=== PATIENT | female | born 1945 | race Caucasian/White ===

== ENCOUNTER 2019-11-19 11:58 | Emergency (ER) | payer MEDICARE, OTHER ==
[2019-11-19] MEDS ORDERED: Sodium Chloride 0.9% 10 ML Syringe FLUSH PRN (12:31)
--- NOTE | 2019-11-19 12:32 | EDM.PDOC ---
ED HPI GENERAL MEDICAL PROBLEM - General Chief Complaint: Upper Extremity Injury/Pain Stated Complaint: BROKEN RIGHT WRIST Time Seen by Provider: 11/19/19 12:09 Source of Information: Reports: Patient, RN Notes Reviewed History Limitations: Reports: No Limitations - History of Present Illness INITIAL COMMENTS - FREE TEXT/NARRATIVE: Patient is a 74-year-old female who presents to the ED for the evaluation of a right wrist fracture. The patient was evaluated by Dr. Harman at the [facility] for her wrist injury. She was found to have a right wrist fracture and placed in a sugar tong splint, and sent here for reduction of the joint. Patient states that she was walking her dog earlier this morning, not paying attention to the ground when she tripped over an uneven portion and ended up breaking her fall with her right wrist. Patient states that there is not a lot of pain involved with this, and that she still has feeling distal to the injury. Patient states that she has a history of high blood pressure, thyroid issues, GERD, but denies any pulmonary history. Patient is not complaining of any pain that radiates up the arm. The patient denies any other sick-like symptoms. Patient states that she is right hand dominant. Right Wrist Pain Score (Numeric/FACES): 2 - Related Data Allergies Allergy/AdvReac Type Severity Reaction Status Date / Time hydrochlorothiazide Allergy Cannot Verified 11/19/19 12:12 Remember yesy Allergy Swollen Verified 11/19/19 12:12 Tongue pistachio nut Allergy Airway Verified 11/19/19 12:12 Tightness Past Medical History HEENT History: Reports: Impaired Vision Cardiovascular History: Reports: High Cholesterol, Hypertension Gastrointestinal History: Reports: Diverticulosis, GERD - Past Surgical History GI Surgical History: Reports: Jackson Fundoplication, Other (See Below) Other GI Surgeries/Procedures: colon resection Musculoskeletal Surgical History: Reports: Hip Replacement, Knee Replacement Social & Family History - Tobacco Use Smoking Status *Q: Never Smoker Review of Systems - Review of Systems Review Of Systems: Comprehensive ROS is negative, except as noted in HPI. ED EXAM, GENERAL - Physical Exam Exam: See Below Exam Limited By: No Limitations General Appearance: Alert, WD/WN, No Apparent Distress Eye Exam: Bilateral Eye: EOMI, Normal Inspection, PERRL Respiratory/Chest: No Respiratory Distress, Lungs Clear, Normal Breath Sounds, No Accessory Muscle Use, Chest Non-Tender Cardiovascular: Normal Peripheral Pulses, Regular Rate, Rhythm, No Murmur Peripheral Pulses: 3+: Radial (L), Radial (R) GI/Abdominal: Normal Bowel Sounds, Soft, Non-Tender, No Distention, No Mass Extremities: Normal Capillary Refill, Other (R wrist/forearm w/ sugartong splint in place. good finger movement, no n/t) Neurological: Alert, Oriented, Normal Cognition, No Motor/Sensory Deficits Psychiatric: Normal Affect, Normal Mood Skin Exam: Warm, Dry, Intact, Normal Color, No Rash ED TRAUMA EXTREMITY PROCEDURES - Joint Reduction Right Wrist Sedation: Conscious Sedation (50 mcg of fentanyl and 2 mg of Versed were used these were administered by nursing staff under the direction of Dr. Mendez and myself), Hematoma/Fracture Block Local Anesthesia - Lidocaine (Xylocaine): 1% Plain Local Anesthetic Volume: 5cc Pre-Procedure NV Status: Normal Post-Procedure NV Status: Normal Technique: Traction/Counter Traction Number of Attempts: 1 Post-Reduction Imaging: Completely Reduced Joint Reduction Complications: No - Splinting Right Upper Extremity Splint Site: R wrist Pre-Procedure NV Status: Normal Post-Procedure NV Status: Normal Splint Material: Fiberglass Splint Design: Sugar Tong, Sling Applied & Form Fitted By: Provider, Nurse Provider Post-Splint Application NV Check: NV Status Normal, Good Position Complications: No Course - Vital Signs Last Recorded V/S: Last Vital Signs Temp 97.5 F 11/19/19 12:09 Pulse 81 11/19/19 12:09 Resp 16 11/19/19 12:09 BP 170/99 H 11/19/19 12:09 Pulse Ox 98 11/19/19 12:09 - Orders/Labs/Meds Orders: Active Orders 24 hr Category Date Time Status Communication Order [RC] STAT Care 11/19/19 12:44 Ordered Peripheral IV Care [RC] . DIRECTED Care 11/19/19 12:31 Ordered Wrist 2V Rt [CR] Stat Exams 11/19/19 13:28 Ordered Sodium Chloride 0.9% [Saline Flush] Med 11/19/19 12:31 Active 10 ml FLUSH ASDIRECTED PRN Peripheral IV Insertion Adult [OM.PC] Stat Oth 11/19/19 12:31 Ordered Medication Orders Sodium Chloride (Saline Flush) 10 ml FLUSH ASDIRECTED PRN PRN Reason: Keep Vein Open Meds: Medications Generic Name Dose Route Start Last Admin Trade Name Freq PRN Reason Stop Dose Admin Sodium Chloride 10 ml 11/19/19 12:31 Saline Flush FLUSH ASDIRECTED PRN Keep Vein Open Discontinued Medications Generic Name Dose Route Start Last Admin Trade Name Freq PRN Reason Stop Dose Admin Fentanyl 100 mcg 11/19/19 12:43 Sublimaze IVPUSH 11/19/19 12:44 ONETIME ONE Lidocaine HCl 10 ml 11/19/19 12:42 Xylocaine 1% INJECT 11/19/19 12:43 ONETIME ONE Midazolam HCl 5 mg 11/19/19 12:43 11/19/19 13:08 Versed 1 Mg/Ml IVPUSH 11/19/19 12:44 Not Given ONETIME ONE Midazolam HCl 5 mg 11/19/19 13:06 Versed 1 Mg/Ml IVPUSH 11/19/19 13:07 ONETIME ONE - Re-Assessments/Exams Free Text/Narrative Re-Assessment/Exam: 11/19/19 12:38 Patient presents to the ED for reduction of her right wrist injury. The x-ray films were sent from Dr. Alejandro's clinic. It does show a dorsally angulated distal radius fracture. Minimal displacement. Will place an IV, and give the patient some IV pain meds and light sedation meds, and we will reduce in the ER. Dr. Mendez will be present and help with the reduction. 11/19/19 13:42 Patient was moved to trauma 2, informed consent was signed, the patient was given 2 mg Versed, and 50 mcg fentanyl and this did achieve pretty good pain control. Dr. Mendez performed a hematoma block at the site of the fracture, and we were able to successfully reduce the distal radius into good alignment. Postreduction films did also show good alignment. Patient will be directed to follow-up with Dr. Alejandro within the next week or so for a cast placement. Patient states that she does have some hydrocodone left over from a prior surgery, and states she can use this if she anticipates the need for stronger pain medications. I did caution her on the use of these, and she states that she does not like taking narcotic pain medications if possible. Departure - Departure Time of Disposition: 13:43 Disposition: Home, Self-Care 01 Condition: Good Clinical Impression: Distal radius fracture, right Qualifiers: Encounter type: initial encounter Fracture type: closed Fracture morphology: other fracture Qualified Code(s): S52.591A - Other fractures of lower end of right radius, initial encounter for closed fracture - Discharge Information *PRESCRIPTION DRUG MONITORING PROGRAM REVIEWED*: No *COPY OF PRESCRIPTION DRUG MONITORING REPORT IN PATIENT MAYRA: No Instructions: Cast or Splint Care, Adult, [id number], Closed Reduction for Wrist or Forearm, Care After Referrals: Aleah Jj PA [Primary Care Provider] - Forms: ED Department Discharge Additional Instructions: You have been evaluated in the ED for your right wrist fracture. You were given some IV medications, to help relax you, and your wrist was reduced successfully in the ER. Postreduction films did demonstrate good alignment of your radius in your right wrist. Please use ice as tolerated to the affected area. You may take Tylenol 500 mg or ibuprofen 600mg q6 hrs for pain relief. Please do so until you have a tolerable level of pain with activity. Do not exceed 4000mg Tylenol, Do not exceed 3200mg ibuprofen in a 24 hour time period. You indicated that you have a prescription for a strong pain medication, hydrocodone/acetaminophen 5/325, please take 1 tab every 6 hours as needed for pain not relieved by Tylenol or ibuprofen alone. Please note this does contain Tylenol in it, so do not take more than 4000 mg in a 24-hour time span. These medications can be addictive, so please take as few as possible to achieve adequate pain control. These meds can also be quite constipating, recommend that you increase your oral fluid intake and take a stool softener like MiraLAX while taking these medications. Please call Ortho for follow-up and further evaluation Dr. Alejandro is our orthopedic surgeon, his office number is [phone]. Please call and set up an appointment as soon as possible for further management. Please return to ED if your symptoms should change or worsen. Sepsis Event Note - Evaluation Sepsis Screening Result: No Definite Risk - Focused Exam Vital Signs: Vital Signs Temp Pulse Resp BP Pulse Ox 11/19/19 12:09 97.5 F 81 16 170/99 H 98 Date Exam was Performed: 11/19/19 Time Exam was Performed: 13:40 - My Orders Last 24 Hours: My Active Orders 11/19/19 12:31 Peripheral IV Care [RC] . DIRECTED Sodium Chloride 0.9% [Saline Flush] 10 ml FLUSH ASDIRECTED PRN Peripheral IV Insertion Adult [OM.PC] Stat 11/19/19 12:44 Communication Order [RC] STAT 11/19/19 13:28 Wrist 2V Rt [CR] Stat - Assessment/Plan Last 24 Hours: My Active Orders 11/19/19 12:31 Peripheral IV Care [RC] . DIRECTED Sodium Chloride 0.9% [Saline Flush] 10 ml FLUSH ASDIRECTED PRN Peripheral IV Insertion Adult [OM.PC] Stat 11/19/19 12:44 Communication Order [RC] STAT 11/19/19 13:28 Wrist 2V Rt [CR] Stat
[2019-11-19] MEDS ORDERED: Lidocaine 1% 10 ML MDV INJECT ONE (12:42)
[2019-11-19] MEDS ORDERED: Midazolam 1 MG/ML 5 ML SDV IVPUSH ONE (12:43)
[2019-11-19] MEDS ORDERED: fentaNYL 100 MCG/2 ML SDV IVPUSH ONE (12:43)
[2019-11-19] MEDS ORDERED: Midazolam 1 MG/ML 2 ML SDV IVPUSH ONE (13:06)
--- NOTE | 2019-11-19 14:17 | CR ---
Right wrist: 2 views of the right wrist were obtained. Comparison: Previous right wrist study performed earlier on the same day (9:41 AM) Comminuted distal radial fracture is seen with articular extension. Alignment appears close to anatomic with alignment being improved from previous study. Mild chondrocalcinosis is noted within the triangular fibrocartilage. 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 Soft tissue swelling is noted. Impression: 1. Improved alignment of previous fracture. 2. Degenerative change and soft tissue swelling. Diagnostic code #3 This report was dictated in MDT
== END 2019-11-19 14:22 | disposition home or self-care (01) ==
LOC: JD.ED 11:58
DX: S52.591A Other fractures of lower end of right radius, initial encounter for closed fracture (principal); I10 Essential (primary) hypertension; Z88.8 Allergy status to other drugs, medicaments and biological substances; Z91.018 Allergy to other foods; W01.0XXA Fall on same level from slipping, tripping and stumbling without subsequent striking against object, initial encounter
CPT/HCPCS: 25605; 73100; 99152; 99153; 99283; J2001; J2250; J3010

== ENCOUNTER 2025-05-14 06:45 | Day surgery (SDC) | payer MEDICARE, OTHER ==
[~2025-05-14 06:45] MED LIST: Sodium Chloride 0.9% 10 ML Syringe FLUSH PRN; Sodium Chloride 0.9% 10 ML Syringe FLUSH SCH
[2025-05-14] MEDS: Lactated Ringers 1,000 ML IV SCH (06:45)
[2025-05-14] MEDS ORDERED: Ondansetron 4 MG/2 ML SDV ONE (07:06)
[2025-05-14] MEDS ORDERED: Lactated Ringers 1,000 ML ONE (07:06)
[2025-05-14] MEDS ORDERED: Propofol 200 MG/20 ML SDV ONE (07:06)
[2025-05-14] MEDS ORDERED: Midazolam 1 MG/ML 2 ML SDV ONE (07:07)
[2025-05-14] MEDS ORDERED: fentaNYL 100 MCG/2 ML SDV IVPUSH PRN (07:18)
[2025-05-14] MEDS ORDERED: Ropivacaine 0.5% 5 MG/ML 30 ML SDV ONE (08:34)
[2025-05-14] MEDS ORDERED: Phenylephrine 1% 10 MG/ML SDV ONE (08:42)
[2025-05-14] MEDS: Morphine 8 MG, EPINEPHrine 0.3 MG, Cefuroxime 750 MG, Ketorolac 30 MG, Sodium Chloride ... PRN (09:31)
[2025-05-14] MEDS: Acetaminophen/HYDROcodone 325-5 MG Tab PO SCH (10:22)
[2025-05-14] MEDS: Ondansetron 4 MG/2 ML SDV IVPUSH PRN (13:30)
== END 2025-05-14 13:45 | disposition home or self-care (01) ==
LOC: JD.SDS 06:45
PROVIDERS: ATTEND Orthopaedic Surgery
DX: M17.11 Unilateral primary osteoarthritis, right knee (principal); I10 Essential (primary) hypertension; E78.2 Mixed hyperlipidemia; K21.9 Gastro-esophageal reflux disease without esophagitis; E03.9 Hypothyroidism, unspecified; Z88.8 Allergy status to other drugs, medicaments and biological substances; Z91.018 Allergy to other foods; Z79.890 Hormone replacement therapy; Z79.899 Other long term (current) drug therapy
CPT/HCPCS: 0055T; 27447; 64447; 73560; 97116; 97161; 97530; A9270; J0169; J0690; J0697; J1885; J2250; J2272; J2371; J2405; J2704; J2795; J3373; J7120; 01402; 99100